=== PATIENT | female | born 1980 ===

== ENCOUNTER 2018-01-14 21:40 | Emergency (ER) | payer SELFPAY ==
[2018-01-14 21:53] VITALS: RESP 18
--- NOTE | 2018-01-14 22:06 | ED PDOC ---
Arrival/HPI - General Chief Complaint: Back Pain Time Seen by Provider: 01/14/18 21:46 Historian: Patient - History of Present Illness Narrative History of Present Illness (Text): 01/14/18 21:59 Jessy Preciado is a 37 year old female, whose past medical history includes chronic back pain, who presents to the Emergency department brought in by EMS accompanied by relative complaining of lower back pain . Patient states she has been seen at [facility] in the past for similar symptoms and told she may have some "disc problems." Patient states for the past few days she has been experiencing lower back pain radiating to her buttocks and legs, which worsened today. Patient states pain is worsened with movement and reports difficulty ambulating secondary to pain. Patient notes she frequently picks up her two young children at home. Patient denies any difficulty moving her bowels, states her last bowel movement was yesterday. Patient denies any fever, chills, urinary symptoms, headache, dizziness, or any other complaints. Symptom Onset: Gradual Symptom Course: Worsening Activities at Onset: Light Context: Home Past Medical History - Provider Review Nursing Documentation Reviewed: Yes - Infectious Disease Hx of Infectious Diseases: None - Psychiatric Hx Substance Use: No - Surgical History Hx Section: Yes (x1) - Anesthesia Hx Anesthesia Reactions: No Family/Social History - Physician Review Nursing Documentation Reviewed: Yes Family/Social History: Unknown Family HX Smoking Status: Never Smoked Hx Alcohol Use: No Hx Substance Use: No Allergies/Home Meds Allergies/Adverse Reactions: Allergies gluten Adverse Reaction (Verified 01/14/18 21:50) DIARRHEA milk Adverse Reaction (Verified 01/14/18 21:50) DIARRHEA wheat Adverse Reaction (Verified 01/14/18 21:50) DIARRHEA Review of Systems - Physician Review All systems were reviewed & negative as marked: Yes - Review of Systems Constitutional: Normal. absent: Fevers Eyes: Normal ENT: Normal Respiratory: Normal. absent: SOB, Cough Cardiovascular: Normal. absent: Chest Pain Gastrointestinal: Normal. absent: Abdominal Pain, Diarrhea, Nausea, Vomiting Genitourinary Female: Normal. absent: Dysuria, Frequency, Hematuria, Urine Output Changes Musculoskeletal: Back Pain. absent: Neck Pain Skin: Normal. absent: Rash Neurological: Normal. absent: Headache, Dizziness Endocrine: Normal Hemo/Lymphatic: Normal Psychiatric: Normal Physical Exam Vital Signs Reviewed: Yes Vital Signs Temp Pulse Resp BP Pulse Ox 01/14/18 21:52 98 F 83 18 127/84 98 Temperature: Afebrile Blood Pressure: Normal Pulse: Regular Respiratory Rate: Normal Appearance: Positive for: Well-Appearing, Non-Toxic, Comfortable Pain Distress: None Mental Status: Positive for: Alert and Oriented X 3 - Systems Exam Head: Present: Atraumatic, Normocephalic Pupils: Present: PERRL Extroacular Muscles: Present: EOMI Conjunctiva: Present: Normal Mouth: Present: Moist Mucous Membranes Neck: Present: Normal Range of Motion Respiratory/Chest: Present: Clear to Auscultation, Good Air Exchange. No: Respiratory Distress, Accessory Muscle Use Cardiovascular: Present: Regular Rate and Rhythm, Normal S1, S2. No: Murmurs Abdomen: No: Tenderness, Distention, Peritoneal Signs Back: Present: Pain with Leg Raise (Pain with bilateral straight leg raise). No: CVA Tenderness, Midline Tenderness, Paraspinal Tenderness Upper Extremity: Present: Normal Inspection. No: Cyanosis, Edema Lower Extremity: Present: Normal Inspection. No: Edema Neurological: Present: GCS=15, CN II-XII Intact, Speech Normal, Motor Func Grossly Intact, Normal Sensory Function, Norm Deep Tendon Reflexes Skin: Present: Warm, Dry, Normal Color. No: Rashes Psychiatric: Present: Alert, Oriented x 3, Normal Insight, Normal Concentration Medical Decision Making ED Course and Treatment: 01/14/18 21:59 Impression: 37 year old female complaining of worsening lower back pain for past few days. Plan: -- CT Lumbar Spine -- Labs -- UA -- Toradol -- Reassess and disposition Progress Notes: 01/15/18 02:23 CT Lumbar Spine: At L5-S1, moderate posterior intervertebral disc space narrowing. Moderate diffuse disc bulge. Superimposed broad-based left paracentral/posterolateral disc protrusion measuring 4.7 mm in its largest anteroposterior dimension. Bilateral facet joint arthropathy. Mild right and moderate left neural foramina narrowing. At L4-L5, mild diffuse disc bulge. Mild bilateral facet arthropathy and ligamentum flavum hypertrophy. The spinal canal is not narrowed. Mild bilateral foramina narrowing. At L3-L4, mild diffuse disc bulge. Bilateral facet arthropathy and ligamentum flavum hypertrophy. The spinal canal is not narrowed. Mild bilateral neural foramina narrowing. At L2-L3, mild diffuse disc bulge, bilateral facet joint arthropathy. The spinal canal is not narrowed. Mild bilateral foramina narrowing. At L1-L2, mild diffuse disc bulge. Bilateral facet joint arthropathy. The spinal canal is not narrowed. Mild bilateral foramina narrowing. Fibroid uterus. Small amount of free pelvic fluid is noted. Changes of pelvic congestion syndrome. Mild diffuse thickening of the bladder. IMPRESSION: Mild multilevel degenerative disc disease. Electronically signed on Jan 15, 2018 2:14:33 AM EST by: Champ Steele M.D., Certified by CHARBEL, GORDO, Neuroradiology 01/15/18 02:51 On re-evaluation, patient with relief following treatment in the Emergency department. Patient ambulatory in the Emergency department without difficulty. Denies any weakness/numbness/tingling in the extremities. I have discussed the results and plan with the patient, who expresses understanding. Patient in agreement with plan to be discharged home. Patient is stable for discharge. Patient was instructed to follow up with physician or return if symptoms worsen or new concerning symptoms arise. - Lab Interpretations I have reviewed the lab results: Yes - RAD Interpretation Drafting Engineer: Radiologist - Scribe Statement The provider has reviewed the documentation as recorded by the Jorgito Reyna Provider Scribe Attestation: All medical record entries made by the Jimmieibsuleman were at my direction and personally dictated by me. I have reviewed the chart and agree that the record accurately reflects my personal performance of the history, physical exam, medical decision making, and the department course for this patient. I have also personally directed, reviewed, and agree with the discharge instructions and disposition. Disposition/Present on Arrival - Present on Arrival Any Indicators Present on Arrival: No History of DVT/PE: No History of Uncontrolled Diabetes: No Urinary Catheter: No History of Decub. Ulcer: No History Surgical Site Infection Following: None - Disposition Have Diagnosis and Disposition been Completed?: Yes Diagnosis: Back pain, Lumbar disc disease with radiculopathy, Lumbar back pain Disposition: HOME/ ROUTINE Disposition Time: 02:47 Patient Plan: Discharge Patient Problems: Current Active Problems Problem Status Onset Back pain Acute Lumbar back pain Acute Lumbar disc disease with radiculopathy Acute Condition: GOOD Discharge Instructions (ExitCare): Low Back Pain (DC), Radiculopathy (DC) Additional Instructions: Rest/no bending or lifting/take meds as prescribed/follow up with your doctor this week Prescriptions: Ibuprofen [Motrin] 600 mg PO Q8 PRN #14 tab PRN Reason: Pain, Moderate (4-7) Tramadol HCl [Ultram] 50 mg PO Q6 PRN #16 tab PRN Reason: Pain, Moderate (4-7) Referrals: PCP,NO [Primary Care Provider] - Follow up with primary Forms: [employer] (Mongolian), WORK NOTE
[2018-01-14 23:30] LABS: HEMOGLOBIN 11.6 g/dL (12.0-16.0); MEAN CELL VOLUME 87.5 fl (80.0-105.0); MEAN CORPUSCULAR HEMOGLOBIN 29.7 pg (25.0-35.0); MEAN CORPUSCULAR HGB CONC 33.9 g/dl (31.0-37.0); MEAN PLATELET VOLUME 9.5 fl (7.0-11.0); RBC 3.91 10^6/uL (3.5-6.1); RED CELL DISTRIBUTION WIDTH 14.2 % (11.5-14.5); WHITE BLOOD COUNT 5.3 10^3/uL (4.5-11.0)
[2018-01-14 23:44] LABS: ALB/GLOB RATIO 1.2 (1.1-1.8); ALBUMIN 4.3 g/dL (3.0-4.8); ALT/SGPT 24 U/L (7-56); AST/SGOT 21 U/L (14-36); BLOOD UREA NITROGEN 8 mg/dL (7-21); CALCIUM 8.9 mg/dL (8.4-10.5); GFR NON-AFRICAN AMERICAN > 60
[2018-01-15 00:50] LABS: URINE BILIRUBIN NEGATIVE (NEGATIVE); URINE BLOOD NEGATIVE (NEGATIVE); URINE GLUCOSE (UA) NEGATIVE (NEGATIVE); URINE LEUKOCYTE ESTERASE TRACE Leu/uL (NEGATIVE); URINE PROTEIN TRACE mg/dL (<30 mg/dL); URINE UROBILINOGEN 0.2 E.U./dL (<1 E.U./dL)
[2018-01-15 01:08] LABS: HCG,QUALITATIVE URINE NEGATIVE (NEGATIVE)
[2018-01-15 01:09] LABS: URINE APPEARANCE CLEAR (CLEAR); URINE COLOR YELLOW (YELLOW)
[2018-01-15] MEDS ORDERED: Iohexol 350 MG/100 ML VIAL ONE (01:11)
[2018-01-15 01:16] LABS: URINE BACTERIA FEW (NEG); URINE RBC 0 - 2 /hpf (0-2); URINE WBC 0 - 2 /hpf (0-6)
[2018-01-15 01:55] VITALS: O2SAT 100
[2018-01-15 03:36] VITALS: BP 132/80; TEMP 98.1
[2018-01-15 04:42] VITALS: PULSE 73
--- NOTE | 2018-01-15 08:36 | CT ---
Date of service: 01/15/2018 PROCEDURE: CT Lumbar Spine with contrast HISTORY: lower back pain COMPARISON: None available. TECHNIQUE: Axial computed tomography images were obtained of the lumbar spine without the use of intravenous contrast. Coronal and sagittal reformatted images were created and reviewed. Radiation dose: Total exam DLP = 1028.51 mGy-cm. This CT exam was performed using one or more of the following dose reduction techniques: Automated exposure control, adjustment of the mA and/or kV according to patient size, and/or use of iterative reconstruction technique. FINDINGS: VERTEBRAE: Unremarkable. No fracture. Normal alignment. DISCS/SPINAL CANAL/NEURAL FORAMINA: L1-2: Unremarkable. L2-3: Unremarkable. L3-4: Unremarkable. L4-5: Unremarkable. L5-S1: There is a left-sided disc herniation measuring 7 mm AP x 9 mm wide. This is extruded inferiorly PARASPINAL SOFT TISSUES: Unremarkable. OTHER FINDINGS: The report concurs with the preliminary [facility] report IMPRESSION: L5-S1. Left-sided disc herniation measuring 7 x 9 mm.
== END 2018-01-15 03:45 | disposition home or self-care (01) ==
LOC: ED 21:40 → MERGE 21:40 → ED 01-15 03:45
DX: M51.16 Intervertebral disc disorders with radiculopathy, lumbar region (principal); M54.5 Low back pain
CPT/HCPCS: 72132; 80053; 81001; 84703; 85027; 87086; 96374; 99283; J1885; Q9967